=== PATIENT | female | born 1960 | race Caucasian/White ===

== ENCOUNTER 2017-12-18 09:28 | Emergency (ER) | payer BC ==
[2017-12-18 09:41] VITALS: BP 119/76; PULSE 74; RESP 18; TEMP 98.1; O2SAT 98
--- NOTE | 2017-12-18 09:55 | C.PDOC ---
History Of Present Illness 57yo female, comes to ER with 4 day complaint of vague, occasional headache, present symmetrically behind both of her eyes. She reports taking Tylenol 3254mg once yesterday with some improvement. Patient was evaluated by Dr. Deshpande for left lateral chest wall discomfort and had a normal EKG; patient was referred to routine outpatient transplant coordinator follow up but patient states she did not understand her diagnosis. Otherwise, no vision changes, weakness, numbness, shortness of breath. Time Seen by Provider: 12/18/17 09:46 Chief Complaint (Nursing): Headache History Per: Patient History/Exam Limitations: no limitations Onset/Duration Of Symptoms: Days Current Symptoms Are (Timing): Still Present Past Medical History Reviewed: Historical Data, Nursing Documentation, Vital Signs Vital Signs: Last Vital Signs Temp 98.1 F 12/18/17 09:36 Pulse 74 12/18/17 09:36 Resp 18 12/18/17 09:36 BP 119/76 12/18/17 09:36 Pulse Ox 98 12/18/17 11:25 - Medical History PMH: Diabetes, Hyperlipidemia, Hypothyroidism Denies: HTN, Chronic Kidney Disease Surgical History: No Surg Hx Family History: States: No Known Family Hx - Social History Hx Tobacco Use: No Hx Alcohol Use: No Hx Substance Use: No - Immunization History Hx Tetanus Toxoid Vaccination: No Hx Influenza Vaccination: No Hx Pneumococcal Vaccination: No Review Of Systems Except As Marked, All Systems Reviewed And Found Negative. Constitutional: Negative for: Fever, Chills Eyes: Negative for: Vision Change Cardiovascular: Positive for: Chest Pain Respiratory: Negative for: Shortness of Breath Gastrointestinal: Negative for: Vomiting Neurological: Positive for: Headache Physical Exam - Physical Exam Appears: Non-toxic, No Acute Distress Skin: Normal Color, Warm, Dry, No Rash, No Ecchymosis Head: Atraumatic, Normacephalic, No Tenderness (sinus) Eye(s): bilateral: Normal Inspection, PERRL, EOMI Ear(s): Bilateral: Normal Nose: Other (nasal erythema with enlarged turbinates touching medial wall.) Neck: Normal ROM, Supple Chest: Symmetrical, Tenderness (localized tenderness to left lateral chest waal , T-4 mid-axilliary line; intercostal pain.) Cardiovascular: Rhythm Regular Respiratory: Normal Breath Sounds Back: Normal Inspection Neurological/Psych: Oriented x3 ED Course And Treatment O2 Sat by Pulse Oximetry: 98 (RA) Pulse Ox Interpretation: Normal Medical Decision Making Medical Decision Making: sinus headaches nasal erythema benadryl, claritin, nasonex L lateral chest wall discomfort digitally and positionally reproducable. normal EKG yesterday, referred to cardio no acute cardio issues today costochondritis Disposition Doctor Will See Patient In The: Office Counseled Patient/Family Regarding: Studies Performed, Diagnosis - Disposition Referrals: Skye Deshpande MD [Staff Provider] - Disposition: HOME/ ROUTINE Disposition Time: 09:54 Condition: GOOD Additional Instructions: Headaches: probably Sinus headaches Claritin 10 mg daily- take in the morning Flonase (nasal steroid spray) one spray to each nostril every 12 hours Motrin/Advil 400-600 mg every 6 hours as needed for headache pain Benadryl (anti-histamine) 25 mg tablet every 6 hours as needed- decreases nasal congestion L chest wall discomfort Costochondritis normal EKG today motrin/Advil 400-600 mg every 6 hours as needed (same as above) Follow-up w Dr. Deshpande as needed Instructions: Sinus Headache (DC), Costochondritis (DC) Forms: [employer] (Khmer) - Clinical Impression Clinical Impression: Chest wall discomfort, Sinus headache - Scribe Statement The provider has reviewed the documentation as recorded by the Chacho Kirk Provider Attestation: All medical record entries made by the Binduibcaron were at my direction and personally dictated by me. I have reviewed the chart and agree that the record accurately reflects my personal performance of the history, physical exam, medical decision making, and the department course for this patient. I have also personally directed, reviewed, and agree with the discharge instructions and disposition.
--- NOTE | 2017-12-19 10:57 | CARD ---
APPROVED REPORT Date of service: 12/18/2017 EKG Measurement Heart [id number] <Conclusion> Normal sinus rhythm Low voltage QRS Cannot rule out Anterior infarct, age undetermined Abnormal ECG
== END 2017-12-18 10:17 | disposition home or self-care (01) ==
LOC: C.ER 09:28
DX: R51 Headache (principal); R07.89 Other chest pain; E11.9 Type 2 diabetes mellitus without complications; E78.5 Hyperlipidemia, unspecified; E03.9 Hypothyroidism, unspecified